=== PATIENT | female | born 1990 | race Two or more races ===

== ENCOUNTER 2021-10-27 13:14 | Inpatient (IN) | payer OTHER ==
[~2021-10-27] VITALS: Ht 167.6 cm; Wt 60.3 kg
[~2021-10-27 13:14] MED LIST: Z GUARD REMEDY 4 OZ OINT TP PRN
--- NOTE | 2021-10-27 13:24 | NUR ---
To ER bed 9, CARTER GIBSON "Went to for cyclic vomiting had full clonic-tonic seizure witnessed. Post ictal on arrival was given 1ativan/30Toradol/4zofran, aaox2, breathing even and non labored, connected to monitor, seizure precaution in place
--- NOTE | 2021-10-27 13:40 | NUR ---
DR ROJAS AT BEDSIDE
--- NOTE | 2021-10-27 13:49 | NUR ---
UNABLE TO PROVIDE URINE AT THIS TIME
[2021-10-27] MEDS ORDERED: LORAZEPAM INJ 2 MG/ML VIAL ONE (15:02)
--- NOTE | 2021-10-27 15:10 | NUR ---
MOVE SHEET SUBMITTED.
[2021-10-27 15:28] LABS: BASOPHILS % (AUTO) 0.1 % (0.0-2.0); HEMATOCRIT 38 % (33-45); HEMOGLOBIN 12.5 g/dL (11.5-14.8); LYMPHOCYTES # (AUTO) 1.6 K/uL (0.8-4.8); LYMPHOCYTES % (AUTO) 10.9 % (20.0-44.0); MEAN CORPUSCULAR HGB CONC 33 g/dl (31.0-36.0); MEAN CORPUSCULAR VOLUME 89 fL (82-100); MONOCYTES # (AUTO) 0.8 K/uL (0.1-1.30); MONOCYTES % (AUTO) 5.3 % (2.0-12.0); NEUTROPHILS # (AUTO) 12.3 K/uL (1.8-8.9); NEUTROPHILS % (AUTO) 83.7 % (43.0-81.0); PLATELET COUNT (AUTO) 274 K/uL (150-450); RED BLOOD CELL COUNT(AUTO) 4.28 MIL/uL (4.0-5.2); WHITE BLOOD COUNT (AUTO) 14.7 K/uL (4.3-11.0)
[2021-10-27] MEDS ORDERED: LORAZEPAM INJ 2 MG/ML VIAL IV ONE (15:30)
--- NOTE | 2021-10-27 15:31 | NUR ---
PATIENT STILL NOT ABLE TO URINATE, DR ROJAS AWARE, NO MD ORDER AT THIS TIME
[2021-10-27 15:39] LABS: CALCIUM, SERUM 8.8 mg/dL (8.5-10.1); CARBON DIOXIDE 28 mmol/L (21-32); CHLORIDE 98 mmol/L (98-107); CREATININE 0.6 mg/dL (0.6-1.3); GLUCOSE 110 mg/dL (74-106); SODIUM SERUM 136 mmol/L (136-145); UREA NITROGEN, BLOOD 16 mg/dL (7-18)
[2021-10-27 15:42] LABS: POTASSIUM 2.8 mmol/L (3.5-5.1)
[2021-10-27 15:44] LABS: ALANINE AMINOTRANSFERASE 62 U/L (12-78); ALBUMIN 4.2 g/dL (3.4-5.0); ALKALINE PHOSPHATASE 82 U/L (46-116); ASPARTATE AMINOTRANSFERASE 44 U/L (15-37); BILIRUBIN,DIRECT 0.2 mg/dL (0.0-0.2); BILIRUBIN,TOTAL 1.2 mg/dL (0.2-1.0); TOTAL PROTEIN, SERUM 8.2 g/dL (6.4-8.2)
[2021-10-27 15:45] LABS: ACETAMINOPHEN 0 ug/ml (10-30); ALCOHOL, BLOOD < 3 mg/dL (0-0)
--- NOTE | 2021-10-27 15:50 | NUR ---
COVID SWAB DONE AND SENT TO LAB
[2021-10-27] MEDS ORDERED: POTASSIUM CL. PREMIX PERIPHER. 100 ML ONE (16:17)
[2021-10-27] MEDS ORDERED: LEVETIRACETAM (500MG) 1,000 MG in IV NS 0.9% 100 ML IV SCH (16:30)
[2021-10-27] MEDS: POTASSIUM CL. PREMIX PERIPHER. 50 ML IV SCH ×2 (16:46→17:47)
[2021-10-27] MEDS ORDERED: IV NS 0.9% 1,000 ML IV PRN (18:00)
[2021-10-27] MEDS ORDERED: ACETAMINOPHEN 325 MG TABLET PO PRN (18:00)
--- NOTE | 2021-10-27 18:55 | NUR ---
URINE COLLECTED AND SENT TO LAB
[2021-10-27 19:37] LABS: BILIRUBIN,URINE SMALL (NEGATIVE); COLOR,URINE YELLOW (YELLOW); LEUKOCYTE ESTERASE ,URINE NEGATIVE (NEGATIVE); NITRITE, URINE NEGATIVE (NEGATIVE); PH,URINE 6.5 (5.0-8.0); PROTEIN,URINE 100 mg/dl (NEGATIVE); UGLUCOSE NEGATIVE (NEGATIVE); UROBILINOGEN,URINE 0.2 EU/dL (0.2)
[2021-10-27 19:46] LABS: BACTERIA,URINE Few /HPF (None Seen); SQUAMOUS EPITHELIAL CELL,UR Few /HPF (None Seen)
--- NOTE | 2021-10-27 19:56 | NUR ---
REPORT GIVEN TO ALFRED LIN FOR CONTINUATION OF CARE.
[2021-10-27 20:00] VITALS: BP 137/75
--- NOTE | 2021-10-27 20:28 | NUR ---
PATIENT TRANSFERRED UNDER ACLS
[2021-10-27 20:30] VITALS: BP 137/75
--- NOTE | 2021-10-27 20:30 | NUR ---
BARREL RAISERVASCULAR NURSE NOTES RECEIVED FROM ER PER ASAF THIS 31 YO FEMALE,ALERT,ORIENTED X3-4,WITH DIAGNOSIS OF SEIZURE,BREATHING REGULAR ,NOT IN ANY FORM OF DISTRESS,WITH SALINE LOCK RIGHT AC INTACT AND PATENT.SIDE RAILS PADDED FOR SAFETY,NOTED HAVING TONIC CLONIC SEIZURE LAST FOR 10 SECONDS.CLAIMED SHE'S HAVING ABDOMINAL PAIN 6/10 ON PAIN SCALE,ONLY TYLENOL WAS ORDERED,WILL NOTIFY LAYER OUT PLATE GLASS HOSPITALIST.ORIENTED TO ROOM SET UP,CALL LIGHT IN REACH,NEEDS ANTICIPATED.
[2021-10-27] MEDS: ONDANSETRON HCL/PF 4 MG/2 ML VIAL IVP PRN (21:03)
--- NOTE | 2021-10-27 21:03 | NUR ---
CLINICAL RESEARCH COORDINATOR NOTES C/O NAUSEA,ZOFRAN 4MG IV GIVEN ORDERED,ICE CHIPS ALSO PROVIDED AT BEDSIDE.
[2021-10-27] MEDS ORDERED: MAGNESIUM HYDROXIDE 30 ML UDC PO PRN (22:00)
[2021-10-27] MEDS ORDERED: HALOPERIDOL LACTATE INJ 5 MG/ML VIAL IV ONE (22:00)
--- NOTE | 2021-10-27 22:00 | NUR ---
STRUCTURAL ENGINEERING PROJECT MANAGER NOTES HOSPITALIST MORIAH MADE AWARE ABOUT PATIENT ABDOMINAL PAIN,WITH NEW ORDER NOTED AND CARRIED OUT.
--- NOTE | 2021-10-27 22:20 | NUR ---
SALES TECHNICIAN NOTES PAIN MANAGEMENT C/O ABDOMINAL PAIN,HALDOL 2.5MG IV GIVEN ORDERED.VITAL SIGNS STABLE.
[2021-10-28] VITALS: BP 113/53
[2021-10-28] MEDS: MAG HYDROX/AL HYDROX/SIMETH 30 ML UDC PO PRN ×2 (01:57→18:06)
--- NOTE | 2021-10-28 01:57 | NUR ---
MS RN NOTES AWAKE,C/O STOMACH UPSET,MAALOX 30MG PO GIVEN ORDERED.
[2021-10-28 04:00] VITALS: BP 143/93
[2021-10-28] MEDS: ONDANSETRON HCL/PF 4 MG/2 ML VIAL IVP PRN ×2 (04:27→16:42)
--- NOTE | 2021-10-28 04:27 | NUR ---
CARPENTER SHIP NOTES C/O NAUSEA,ZOFRAN 4MG IV GIVEN ORDERED.
--- NOTE | 2021-10-28 05:45 | NUR ---
DUST PULLER NOTES HAVING TONIC CLONIC SEIZURE LAST FOR ALMOST 60 SECONDS WITNESSED BY CHARGE NURSE JONATHON AND AND RT.
--- NOTE | 2021-10-28 05:48 | NUR ---
RT UNABLE TO COMPLETE 0500 EKG DUE TO PT HAVING SEIZURE AND VOMITING. BOWL SANDER AND RN ALFRED AWARE.
[2021-10-28] MEDS: LORAZEPAM INJ 2 MG/ML VIAL IV PRN ×2 (05:58→18:10)
--- NOTE | 2021-10-28 05:58 | NUR ---
CIRCUIT BREAKER MECHANIC NOTES VITALS SIGNS POST SEIZURE BP-147/94,HR-62,RR-18,ORAL TEMP OF-98.2,O2 SAT-96% ON ROOM AIR. ATIVAN 2MG IV GIVEN ORDERED FOR EPISODE OF SEIZURE.SIDE RAILS PADDED FOR SAFETY.ADVISED NOT TO GET OUT OF BED FOR SAFETY.
--- NOTE | 2021-10-28 06:59 | NUR ---
SLUDGE MILL OPERATOR NOTES SLEEPING THIS TIME,IVF INFUSING WELL ON RIGHT AC,SEIZURE ACTIVITY IMPROVED,FALL PRECAUTION OBSERVED,CALL LIGHT IN REACH,NEEDS ATTENDED.
--- NOTE | 2021-10-28 07:28 | NUR ---
STEAM FITTER SUPERVISOR OPENING NOTES RECEIVED PT ASLEEP IN BED, EASILY AROUSED. A/O X3-4, ABLE TO MAKE NEEDS. ON RA, TOLERATING WELL. NO SOB NOTED. NOT IN ANY SIGN OF RESPIRATORY DISTRESS. ON CARDIAC TELE MONITOR WITH CURRENT READING SINUS RHYTHM, HR 70. IV ACCESS ON RAC G #20 INTACT AND PATENT WITH NS INFUSING AT 75ML/HR. SEIZURE AND SAFETY PRECAUTIONS IN PLACE: BED IN LOWEST AND LOCKED POSITION, SIDE RAILS UP, SIDE RAILS PADS IN PLACE, AND CALL LIGHT WITHIN REACH. WILL CONTINUE TO MONITOR PT.
[2021-10-28 08:00] VITALS: BP 127/84
[2021-10-28 08:11] LABS: BASOPHILS % (AUTO) 0.2 % (0.0-2.0); EOSINOPHILS % (AUTO) 0.1 % (0.0-6.0); HEMATOCRIT 37 % (33-45); HEMOGLOBIN 12.1 g/dL (11.5-14.8); LYMPHOCYTES # (AUTO) 1.7 K/uL (0.8-4.8); LYMPHOCYTES % (AUTO) 24.6 % (20.0-44.0); MEAN CORPUSCULAR HGB CONC 33 g/dl (31.0-36.0); MEAN CORPUSCULAR VOLUME 89 fL (82-100); MONOCYTES # (AUTO) 0.7 K/uL (0.1-1.30); MONOCYTES % (AUTO) 9.6 % (2.0-12.0); NEUTROPHILS # (AUTO) 4.5 K/uL (1.8-8.9); NEUTROPHILS % (AUTO) 65.5 % (43.0-81.0); PLATELET COUNT (AUTO) 258 K/uL (150-450); RED BLOOD CELL COUNT(AUTO) 4.11 MIL/uL (4.0-5.2); WHITE BLOOD COUNT (AUTO) 6.8 K/uL (4.3-11.0)
[2021-10-28] MEDS ORDERED: LEVETIRACETAM (500MG) 500 MG in IV NS 0.9% 100 ML IV SCH (09:00)
[2021-10-28 09:27] LABS: ALBUMIN 3.6 g/dL (3.4-5.0); BILIRUBIN,TOTAL 0.8 mg/dL (0.2-1.0); CALCIUM, SERUM 8.4 mg/dL (8.5-10.1); CREATININE 0.6 mg/dL (0.6-1.3); MAGNESIUM 2.4 mg/dL (1.8-2.4); PHOSPHORUS 3.3 mg/dL (2.5-4.9); TOTAL PROTEIN, SERUM 7.4 g/dL (6.4-8.2)
[2021-10-28] MEDS ORDERED: LISI20TA30 PO (11:06)
[2021-10-28] MEDS ORDERED: GABA300C PO (11:06)
[2021-10-28] MEDS: POTASSIUM CHLORIDE 20 MEQ TAB.PRT.SR PO SCH ×3 (11:15→13:31)
--- NOTE | 2021-10-28 18:47 | NUR ---
RN NOTE PT HAD AN EPISODE OF SEIZURE FOR 60 SECONDS. ATIVAN 2MG ADMINISTERED ORDERED PRN. MADE DR. JONES AWARE WITH ORDERS TO DC PREVIOUS KEPPRA ORDER OF 500MG IV AND TO INCREASE IT TO 1GM IV Q12HRS AND TO CALL HIM AGAIN IF PT HAS ANOTHER EPISODE.
--- NOTE | 2021-10-28 19:25 | NUR ---
LAP MAKER CLOSING NOTES PT ASLEEP IN BED, EASILY AROUSED. A/O X3-4, ABLE TO MAKE NEEDS. ON RA, TOLERATING WELL. NO SOB NOTED. NOT IN ANY SIGN OF RESPIRATORY DISTRESS. ON CARDIAC TELE MONITOR WITH CURRENT READING SINUS RHYTHM, HR 80. IV ACCESS ON RAC G #20 INTACT AND PATENT WITH NS INFUSING AT 75ML/HR. ALL NEEDS ATTENDED. KEPT CLEAN AND COMFORTABLE. SEIZURE AND SAFETY PRECAUTIONS IN PLACE: BED IN LOWEST AND LOCKED POSITION, SIDE RAILS UP, SIDE RAILS PADS IN PLACE, AND CALL LIGHT WITHIN REACH. ENDORSED TO LIGHTER CAPTAIN NURSE FOR SHARRON.
--- NOTE | 2021-10-28 19:55 | NUR ---
AIRCRAFT MAINTENANCE INSTRUCTOR OPENING NOTES RECEIVED PT IN BED AAOX4.ABLE TO MAKE NEEDS KNOWN.KARTIK WELL ON RM AIR.NO SOB/DISTRESS NOTED.ON CARDIAC TELE MONITOR WITH CURRENT READING SINUS RHYTHM WITH BBB, HR 85.IV ACCESS ON L HAND G #20 SALINE LOCK, INTACT AND PATENT AND RAC G # 20 WITH NS INFUSING AT 75ML/HR. SAFETY MEASURES IN PLACE: BED IN LOWEST AND LOCKED POSITION, SIDE RAILS UP X2, AND CALL LIGHT WITHIN REACH. WILL CONTINUE TO MONITOR PT.
--- NOTE | 2021-10-28 20:40 | NUR ---
RN NOTES PT COMPLAINED OF PAIN 10/10 ABDOMEN RLQ.I TEXTED DOC:ESTRELLA WITH A NEW ORDERED PRN Q4H MORPHINE 2MG INJ.AND US APPENDIX/RLQ STAT.
[2021-10-28 20:47] VITALS: BP 135/95
[2021-10-28] MEDS: MORPHINE SULFATE INJ 2 MG/ML DISP.SYRIN IV PRN (20:51)
[2021-10-28] MEDS: LEVETIRACETAM (500MG) 1,000 MG in IV NS 0.9% 100 ML IV SCH (21:08)
[2021-10-29 00:36] VITALS: BP 137/85
[2021-10-29] MEDS: ONDANSETRON HCL/PF 4 MG/2 ML VIAL IVP PRN ×3 (02:04→21:58)
--- NOTE | 2021-10-29 02:45 | NUR ---
RN NOTES. PT COMPLAINED OF ABDOMINAL PAIN RLQ 10/.PRN MORPHINE 2MG INJ.NO SIGN A/R NOTED.
[2021-10-29] MEDS: MORPHINE SULFATE INJ 2 MG/ML DISP.SYRIN IV PRN ×5 (02:46→21:58)
[2021-10-29 04:48] VITALS: BP 151/82
--- NOTE | 2021-10-29 06:51 | NUR ---
PRIMARY CARE SALES REPRESENTATIVE CLOSING NOTES PT IN BED AAOXX3-4, ABLE TO MAKE NEEDS. ON RA, TOLERATING WELL. NO SOB/DISTRESS NOTED. ON CARDIAC TELE MONITOR WITH CURRENT READING SINUS RHYTHM, HR 78. IV ACCESS ON LAC G #20 INTACT AND PATENT WITH NS INFUSING AT 75ML/HR. ALL NEEDS ATTENDED. KEPT CLEAN AND COMFORTABLE. SEIZURE AND SAFETY PRECAUTIONS IN PLACE: BED IN LOWEST AND LOCKED POSITION, SIDE RAILS UP, SIDE RAILS PADS IN PLACE, AND CALL LIGHT WITHIN REACH. ENDORSED TO SHOWROOM SALES ASSISTANT NURSE FOR SHARRON.
--- NOTE | 2021-10-29 07:30 | NUR ---
MS RN OPENING NOTES RECEIVED PATIENT ON BED RESTING AND A/O X4. ON ROOM AIR TOLERATING WELL. NO SOB NOTED. NOT IN DISTRESS. WITH COMPLAINTS OF PAIN IN THE ABDOMEN AT THE SCALE OF 6/10. COMFORT MEASURES PROVIDED. WITH IV ACCESS AT LEFT AC G20 WITH NS AT 75ML/HR INFUSING WELL. SAFETY MEASURES IN PLACED. CALL LIGHT WITHIN REACH. BED ON LOWEST LOCKED POSITION. WILL CONTINUE TO MONITOR.
--- NOTE | 2021-10-29 07:30 | NUR ---
MS LIN OPENING NOTES RECEIVED PATIENT ON BED RESTING AND A/O X4. ON ROOM AIR TOLERATING WELL. NO SOB NOTED. NOT IN DISTRESS. WITH COMPLAINTS OF PAIN IN THE ABDOMEN AT THE SCALE OF 6/10. COMFORT MEASURES PROVIDED. WITH IV ACCESS AT LEFT AC G20 WITH NS AT 75ML/HR INFUSING WELL. SAFETY MEASURES IN PLACED. CALL LIGHT WITHIN REACH. BED ON LOWEST LOCKED POSITION. WILL ENDORSE TO NEXT SHIFT FOR SHARRON. Addendum: 10/29/21 at 1937 by EMORY VARGAS RN ERROR
[2021-10-29 07:48] LABS: CALCIUM, SERUM 8.6 mg/dL (8.5-10.1); CREATININE 0.5 mg/dL (0.6-1.3); POTASSIUM 3.5 mmol/L (3.5-5.1)
[2021-10-29 08:00] VITALS: BP 125/72
[2021-10-29] MEDS: LEVETIRACETAM (500MG) 1,000 MG in IV NS 0.9% 100 ML IV SCH ×2 (09:26→20:53)
[2021-10-29 12:00] VITALS: BP 162/93
--- NOTE | 2021-10-29 14:49 | NUR ---
SS Consult requested for marijuana abuse. Pt. is a 31-year-old female who was admitted to [facility] on 10/27/2021 due to seizure. Upon SS Consult, pt. is alert and oriented x4. Pt. presented with a depressed mood. Pt. presented with low speech. Pt. provided appropriate eye contact. Pt. was cooperative throughout the interview. enterprise resource planner explored pt.s social support. Pt. stated she lives at [address] [place] [address] with her sister Cathy Kc ([phone]) and her parents. enterprise resource planner explored if pt. was ambulatory. Pt. stated she was ambulatory. Pt. stated she is independent with her ADLs. enterprise resource planner explored pt.s substance abuse history. Pt. stated she was an alcoholic and relapsed six months ago. Pt. stated she also used cocaine and marijuana. Per toxicology report, pt. was positive for cannabinoids. enterprise resource planner offered pt. resources [facility] ([id number] [place] [address]) and pt. accepted. enterprise resource planner explored pt.s psychiatric history. Pt. stated he has depression and anxiety. Pt. stated she doesnt have a psychiatrist or therapist. enterprise resource planner offered pt. mental health resources and pt. accepted. Pt. denied suicidal and homicidal ideation. Pt. denied current visual and auditory hallucinations. Plan: Upon Discharge, pt. will return to at [address] [facility] [facility] [address] [place] [address] and live with her family.
[2021-10-29 16:00] VITALS: BP 131/71
--- NOTE | 2021-10-29 19:30 | NUR ---
MS RN OPENING NOTE RECEIVED PT AWAKE IN BED. A/O X4 AND ABLE TO MAKE NEEDS KNOWN. PT STABLE ON ROOM AIR. NO SOB OR S/S OF RESPIRATORY DISTRESS. BREATHING EVEN AND UNLABORED. IV ACCESS LAC 20 GAUGE INTACT AND PATENT, RUNNING NS @ 75 ML/HR. SAFETY PRECAUTIONS IN PLACE. BED IN LOWEST LOCKED POSITION, HOB ELEVATED, SIDE RAILS UP X2, AND CALL LIGHT AND TABLE WITHIN REACH. ALL NEEDS MET AT THIS TIME.
--- NOTE | 2021-10-29 19:38 | NUR ---
MS RN CLOSING NOTES PATIENT ON BED RESTING AND A/O X4. ON ROOM AIR TOLERATING WELL. NO SOB NOTED. NOT IN DISTRESS. WITH NO COMPLAINTS OF PAIN AT THIS TIME. WITH IV ACCESS AT LEFT AC G20 WITH NS AT 75ML/HR INFUSING WELL. SAFETY MEASURES IN PLACED. CALL LIGHT WITHIN REACH. BED ON LOWEST LOCKED POSITION. WILL ENDORSE TO NEXT SHIFT FOR SHARRON.
[2021-10-29 20:00] VITALS: BP 123/69
--- NOTE | 2021-10-29 21:58 | NUR ---
RN NOTE PT COMPLAINED OF PAIN 8/10 OF ABDOMEN. ADMINISTERED MORPHINE 2 MG FOR SEVERE PAIN. PT ALSO COMPLAINED OF NAUSEA, NO EMESIS PRESENT. ADMINISTERED ZOFRAN 4 MG FOR NAUSEA. MADE COMFORTABLE IN BED. ALL OTHER NEEDS MET AT THIS TIME.
[2021-10-30] VITALS: BP 113/64
[2021-10-30 04:00] VITALS: BP 137/66
[2021-10-30] MEDS: MORPHINE SULFATE INJ 2 MG/ML DISP.SYRIN IV PRN ×2 (06:45→12:47)
--- NOTE | 2021-10-30 06:45 | NUR ---
RN NOTE PT COMPLAINED OF PAIN 8/10 OF ABDOMEN. ADMINISTERED MORPHINE 2 MG FOR SEVERE PAIN. ALL NEEDS MET AT THIS TIME.
--- NOTE | 2021-10-30 06:51 | NUR ---
MS RN CLOSING NOTE PT AWAKE IN BED. A/O X4 AND ABLE TO MAKE NEEDS KNOWN. PT STABLE ON ROOM AIR. NO SOB OR S/S OF RESPIRATORY DISTRESS. BREATHING EVEN AND UNLABORED. IV ACCESS LAC 20 GAUGE INTACT AND PATENT, RUNNING NS @ 75 ML/HR. ALL DUE MEDS GIVEN ORDERED. NO SEIZURES DUEING SHIFT. SAFETY PRECAUTIONS IN PLACE AT ALL TIMES. BED IN LOWEST LOCKED POSITION, HOB ELEVATED, SIDE RAILS UP X2 AND PADDED, AND CALL LIGHT AND TABLE WITHIN REACH. ALL NEEDS MET AT THIS TIME AND WILL ENDORSE TO ONCOMING NURSE FOR SHARRON.
--- NOTE | 2021-10-30 07:30 | NUR ---
MS RN OPENING NOTES RECEIVED PATIENT AWAKE IN BED. A/O X4 AND ABLE TO MAKE NEEDS KNOWN. BREATHING EVEN AND UNLABORED ON RA. DENIES PAIN AT THIS TIME. LAC G#20 INTACT AND PATENT, RUNNING NS @ 75 ML/HR, TOLERATING WELL. SAFETY PRECAUTIONS IN PLACE. WILL CONTINUE TO MONITOR
[2021-10-30 08:00] VITALS: BP 100/54
[2021-10-30] MEDS: LEVETIRACETAM (500MG) 1,000 MG in IV NS 0.9% 100 ML IV SCH (09:24)
[2021-10-30 12:00] VITALS: BP 99/68
[2021-10-30] MEDS ORDERED: LEVE1000 PO (12:19)
[2021-10-30] MEDS: ONDANSETRON HCL/PF 4 MG/2 ML VIAL IVP PRN (12:46)
--- NOTE | 2021-10-30 15:35 | NUR ---
CLAMP JIG ASSEMBLER NOTES PATIENT MEDICALLY STABLE FOR DISCHARGE. VSS. DISCHARGE INSTRUCTIONS PROVIDED AND PATIENT VERBALIZED UNDERSTANDING. EXIT CARE PACKET PROVIDED. ALL BELONGINGS ACCOUNTED FOR AND DOCUMENTS SIGNED. SKIN CLEAR AND INTACT. IV ACCESS REMOVED, PRESSURE APPLIED AT DIRECT SITE WITH GAUZE AND TAPE. ID BAND REMOVED. PATIENT LEFT HOSPITAL ACCOMPANIED BY SELF.
== END 2021-10-30 15:40 | disposition home or self-care (01) | DRG 53 ==
LOC: ER 13:19 → TRANSITION 18:15 → TELE 19:58
PROVIDERS: ADMIT Nurse Practitioner Family; ATTEND Internal Medicine
DX: G40.409 Other generalized epilepsy and epileptic syndromes, not intractable, without status epilepticus (principal); G93.89 Other specified disorders of brain; D72.829 Elevated white blood cell count, unspecified; E87.6 Hypokalemia; F12.188 Cannabis abuse with other cannabis-induced disorder; I10 Essential (primary) hypertension; R11.15 Cyclical vomiting syndrome unrelated to migraine
CPT/HCPCS: 36415; 70450-TC; 71045-TC; 80048-TC; 80053-TC; 80076-TC; 81001; 83735-TC; 84100-TC; 84703-TC; 85025-TC; 87081-TC; 87086-TC; A6253; C9803; G0378; G0480; J1630; J1953; J2060; J2270; J2405; J3480; J7030; J7040; J7050

== ENCOUNTER 2021-11-06 13:02 | Emergency (ER) | payer OTHER ==
[~2021-11-06] VITALS: Ht 167.6 cm; Wt 61.7 kg
[~2021-11-06 13:02] MED LIST changes: +GABA300C PO; +LEVE1000 PO; +LISI20TA30 PO; -Z GUARD REMEDY 4 OZ OINT TP PRN
[2021-11-06 13:18] VITALS: BP 129/79
--- NOTE | 2021-11-06 13:18 | NUR ---
BIBS C/O CHRONIC BACK PAIN GOT WORSE X 3 DAYS, DENIES ANY INJURY.
[2021-11-06] MEDS ORDERED: CARI350T PO (14:13)
[2021-11-06] MEDS ORDERED: HYDR-4209 PO (14:13)
[2021-11-06] MEDS ORDERED: KETOROLAC TROMETHAMINE INJ 30 MG/ML VIAL ONE (14:19)
[2021-11-06] MEDS ORDERED: KETOROLAC TROMETHAMINE INJ 30 MG/ML VIAL IM ONE (14:30)
== END 2021-11-06 14:26 | disposition home or self-care (01) ==
LOC: ER 13:07
DX: M54.50 Low back pain, unspecified (principal); Z79.899 Other long term (current) drug therapy
CPT/HCPCS: 99283; 96372; J1885